=== PATIENT | male | born 1995 | race American Indian/Alaskan Native ===

== ENCOUNTER 2019-11-03 15:18 | Emergency (ER) | payer SELFPAY ==
[2019-11-03 15:31] VITALS: BP 146/74
[2019-11-03] MEDS ORDERED: IPRATROPIUM 0.02% NEBU 2.5 ML IH ONE (17:21)
[2019-11-03] MEDS ORDERED: ALBUTEROL 2.5 MG/3 ML NEBU IH ONE (17:21)
[2019-11-03] MEDS ORDERED: predniSONE 20 MG TAB PO ONE (17:21)
--- NOTE | 2019-11-03 17:38 | Emergency Department Report ---
ED Shortness of Breath HPI - General Chief Complaint: Upper Respiratory Infection Stated Complaint: CHEST PAIN,JEZ Time Seen by Provider: 11/03/19 17:09 Source: patient Mode of arrival: Ambulatory Limitations: No Limitations - History of Present Illness Initial Comments: 24-year-old -Thai male presents to the emergency room for 2-day history of wheezing. Patient states his has some shortness of breath with exertion. Patient denies any fever chills denies any loss of taste or smell. Patient does admit that he smokes cigarettes. Patient also reports nasal congestion chest congestion runny nose. Patient denies any past medical history and currently takes no medications on a daily basis and has no known drug allergies. MD Complaint: shortness of breath Onset/Timin -: days(s) Consistency: intermittent Improves With: nothing Worsens With: exertion Context: recent URI, smoke/fume exposure Treatments Prior to Arrival: none - Related Data Home Oxygen Therapy: No Previous Rx's Medication Instructions Recorded Last Taken Type Albuterol Sulfate [Proventil Hfa] 6.7 gm IH QID PRN #1 hfa.aer.ad 11/03/19 Unknown Rx Cetirizine HCl [ZyrTEC 10mg cap] 10 mg PO QDAY #30 capsule 11/03/19 Unknown Rx Montelukast [Singulair] 10 mg PO QPM #15 tablet 11/03/19 Unknown Rx predniSONE [Deltasone] 40 mg PO QDAY 5 Days #10 tablet 11/03/19 Unknown Rx Allergies Allergy/AdvReac Type Severity Reaction Status Date / Time No Known Allergies Allergy Unverified 11/03/19 15:28 ED Review of Systems ROS: Stated complaint: CHEST PAIN,JEZ Other details as noted in HPI Comment: All other systems reviewed and negative ED Past Medical Hx - Past Medical History Previous Medical History?: No - Surgical History Additional Surgical History: Testicle removed - Social History Smoking Status: Current Every Day Smoker Substance Use Type: Alcohol - Medications Home Medications: Home Medications Medication Instructions Recorded Confirmed Last Taken Type Albuterol Sulfate [Proventil Hfa] 6.7 gm IH QID PRN #1 hfa.aer.ad 11/03/19 Unknown Rx Cetirizine HCl [ZyrTEC 10mg cap] 10 mg PO QDAY #30 capsule 11/03/19 Unknown Rx Montelukast [Singulair] 10 mg PO QPM #15 tablet 11/03/19 Unknown Rx predniSONE [Deltasone] 40 mg PO QDAY 5 Days #10 tablet 11/03/19 Unknown Rx ED Physical Exam - General Limitations: No Limitations - Head Head exam: Present: atraumatic, normocephalic - Eye Eye exam: Present: normal appearance - ENT ENT exam: Present: mucous membranes moist - Neck Neck exam: Present: normal inspection - Respiratory Respiratory exam: Present: wheezes - Cardiovascular Cardiovascular Exam: Present: regular rate, normal rhythm. Absent: systolic murmur, diastolic murmur, rubs, gallop - Neurological Exam Neurological exam: Present: alert, oriented X3, normal gait - Psychiatric Psychiatric exam: Present: normal affect, normal mood - Skin Skin exam: Present: warm, dry, intact, normal color. Absent: rash ED Course Vital Signs 11/03/19 15:30 Temperature 98.3 F Pulse Rate 75 Respiratory 18 Rate Blood Pressure 146/74 O2 Sat by Pulse 97 Oximetry - Reevaluation(s) Reevaluation #1: 11/03/19 18:26 Patient reports he feels much better like a new man. ED Medical Decision Making - Medical Decision Making 24-year-old -Thai male presents to the emergency room for 2-day history of wheezing. Patient states his has some shortness of breath with exertion. Patient denies any fever chills denies any loss of taste or smell. Patient does admit that he smokes cigarettes. Patient also reports nasal congestion chest congestion runny nose. Patient denies any past medical history and currently takes no medications on a daily basis and has no known drug allergies. Patient is given albuterol 5 mg inhalation, Atrovent 1 mg inhalation, and 60 mg prednisone p.o. patient be discharged on albuterol inhaler, prednisone 40 mg daily for 5 days. Montelukast 10 mg p.o. daily for the 15 days and Zyrtec's 10 mg for 30 days. Critical care attestation.: If time is entered above; I have spent that time in minutes in the direct care of this critically ill patient, excluding procedure time. ED Disposition Clinical Impression: Acute wheezy bronchitis Disposition: TO HOME OR SELFCARE Is pt being admited?: No Does the pt Need Aspirin: No Condition: Stable Instructions: Acute Bronchitis (ED) Additional Instructions: Please take medications as prescribed. I highly recommend for you to follow-up with your primary care provider. Prescriptions: predniSONE [Deltasone] 40 mg PO QDAY 5 Days #10 tablet Albuterol Sulfate [Proventil Hfa] 6.7 gm IH QID PRN #1 hfa.aer.ad PRN Reason: Wheezing Montelukast [Singulair] 10 mg PO QPM #15 tablet Cetirizine HCl [ZyrTEC 10mg cap] 10 mg PO QDAY #30 capsule Referrals: [facility] [Provider Group] - 3-5 Days [facility] [place] [Outside] - 3-5 Days Forms: Work/School Release Form(ED)
== END 2019-11-03 18:55 | disposition home or self-care (01) ==
LOC: ED 15:18
DX: J40 Bronchitis, not specified as acute or chronic (principal); F17.200 Nicotine dependence, unspecified, uncomplicated
CPT/HCPCS: 99282; J7512